=== PATIENT | male | born 1980 | race Caucasian/White ===

== ENCOUNTER → 2018-05-15 | Outpatient (CLI) | payer BC ==
--- NOTE | 2018-05-16 05:26 | PAP/PSG TECHNICIAN REPORT ---
[facility] Maternal Fetal Physician Polysomnogram Report Study name: None Report date: 05/16/2018 Study date: 05/15/2018 Referring Physician: ANDREA Ramos Name: KAROL CARIAS Interpreting Physician: Holger Howard D.O. Date of : 1980 Maternal Fetal Physician: CORRIE Thacker. Sex: Male Age: 37 StudyType: PSG PAP Weight: 235 lbs Height: 37 years, Height 6' 0" Neck Circum:16.5inches BMI: 31.87 Medications: Epipen 0.3mg, Escitalopram 10mg, Tamsulosin 0.4mg Patient History Study started on room air with 7cwp cpap in room #8. He felt as though he was suffocating on a lower setting.37 yr old male here tonight for a new titration study. He had a HST that had a cumulative NANCY of 47.2. Neck circ=16.5inches. ESS=20/24. Parameters Monitored NPSG: E1-M2, E2-M1, Fp1-M2, Fp2-M1, F3-M2, F4-M2, F4-M1, C3-M2, C4-M2, C4-M1, O1-M2, O2-M2, O2-M1, T3-M2, T4-M1, P3-M2, P4-M1, CHIN1, CHIN2, HR, EKG, Legs, PFLOW, SNOR, FLOW, CFLOW, Tidal Volume, THOR, ABDO, SpO2, PLTH, CPRESS, ETCO2 Wave, ETCO2, pH Sleep Architecture Sleep Stages Time at Lights Off 10:01:27 PM STAGES Time (min.) TST (%) Time at Lights On 5:14:27 AM Wake 58.0 -- Total Recording Time (TRT) 433.00 min. N1 26.5 7 Total Sleep Period (TSP) 408.5 min. N2 164.5 44 Total Sleep Time (TST) 375.0min. N3 82.0 22 Awake Time 58.0 min. REM 102.0 27 Wake after Sleep Onset 33.5 min. Sleep Efficiency (SE) 87 % Sleep Onset Latency (YULI) 24.5 min. Number of Stage 1 Shifts None Awakenings 30 Stage Changes 126 Number of REM periods 3 REM 102.0 27 REM Latency 282.5 min. NREM 273.0 73 Body Position Analysis Supine Right Left Side Prone Vertical Total Sleep Time (min.) 127.4 110.0 170.5 280.50 0.0 0.0 Total Sleep Time (%) 25% 29% 45% 75 0% N/A% Total Sleep Time REM (min.) 4.0 0.0 98.0 None 0.0 0.0 Total Sleep Time NREM (min.) 90.5 110.0 72.5 None 0.0 0.0 Intermittent Wake (min.) 32.9 17.1 8.0 None 0.0 0.0 Total Sleep Period (%) 26% None None None None None Arousals Myoclonus (PLM) * Events Count Index Events Count Index Spontaneous 31 5 Events Awake (PLMW) 68 70.3 Respiratory 8 1.4 Events Asleep w/ Arousal (PLMA) 19 3.0 PLM 18 3 Events Asleep w/o Arousal (PLMS) 128 20.5 Snoring 12 2 Total Asleep 147 23.5 Total 69 11 Total 215 30 Respiratory Analysis * CA OA MA CH H RERA Total Count 0 4 0 0 6 0 10 Index 0.0 0.6 0.0 0 1.0 0 1.6 Mean Duration 0.0 20.6 0.0 0.00 27.9 0.0 25.0 Longest Duration 0.0 23.5 0.0 0.00 0.0 0.0 37.8 Respiratory Event Summary Total Supine ~Supine Right Left Prone REM NREM Apneas Count 4 1 3 3 0 N/A 0 4 Index 0.6 1 1 1.6 0.0 N/A 0 1 Hypopneas (4% Desat) Count 6 1 5 5 0 N/A 0 6 Index 1.0 0.6 1 2.7 0.0 N/A 0.0 1.3 Apneas & All Hypopneas Count 10 2 8 8 0 N/A 0 10 Index 1.6 1 2 4 0 N/A 0.0 2.2 Respiratory Events ([employer]ician+All Hyp+RERA) Count 10 2 8 8 0 N/A 0 10 Index 1.6 1 2 4.4 0.0 N/A 0.0 2.2 Respiratory Related Arousal Count 8 2 7 7 0 N/A 0 9 Index 1.4 1 1 4 0 N/A 0 2 Snoring Analysis Supine Right Left Prone REM NREM Total Snore duration 8.9 min Snores count 93 185 44 N/A 26 296 322 Snore mean duration 1.7 Sec Snores index 59 101 15 N/A 15.3 65.1 51.5 TST with snoring (%) 2.4% Desaturation Event Summary: Minimum %SpO2 Event Count Mean/Min/Max Duration(sec.) Desaturation Index % Time In Bed > 90 16 27.4 / 6.0 / 60.0 2.3 98.8 86 - 90 0 N/A 0.0 1.2 81 - 85 0 N/A 0.0 0.0 76 - 80 0 N/A 0.0 0.0 71 - 75 0 N/A 0.0 0.0 66 - 70 0 N/A 0.0 0.0 61 - 65 0 N/A 0.0 0.0 56 - 60 0 N/A 0.0 0.0 51 - 55 0 N/A 0.0 0.0 < 50 0 N/A 0.0 0.0 Total REM NREM Awake <50% 0.0 min. 0.0 min. 0.0 min. 0.0 min. 51 - 60% 0.0 min. 0.0 min. 0.0 min. 0.0 min. 61 - 70% 0.0 min. 0.0 min. 0.0 min. 0.0 min. 71 - 80% 0.0 min. 0.0 min. 0.0 min. 0.0 min. 81 - 90% 5.2 min. 0.0 min. 4.4 min. 0.9 min. 91 - 100% 422.6 min. 101.9 min. 265.3 min. 55.4 min. Average 94 95 93 94 Minimum SpO2 87 92 87 89 Desaturation Event Index 2.2 0.0 2.0 7.2 # Desat. Events below 89% 3 N/A 3 N/A Time(%) with Saturation below 89% 0.1 0.0 0.1 0.0 Time(min.) with Saturation below 89% 0.3 0.0 0.3 0.0 Heart Rate Analysis Min (bpm) Max (bpm) Average (bpm) Awake 48 300 67 NREM 45 208 61 REM 45 81 55 Overall 45 208 60 Supplemental O2 Values Minimum O2 level: None Value Start Time End Time Maternal Fetal Physician Comments Mr. Carias slept in the right, left and supine positions. No cardiac arrhythmia noted. PLM's were noted. No bruxism noted. CPAP was initiated at +7 CMH2O (he could not tolerate a lower setting) and up-titrated to an optimal level of +8 CMH2O, which nearly eliminated all respiratory events and snoring. A medium Quattro Air full face mask by [employer] was used during titration. He did not use the restroom during the night. He stated that he did not sleep as well as when at home. The final report will be interpreted and signed by a sleep physician. The completed physician report will then be placed in the patient medical record Therapy Event: Therapy (cm H20) 7 8 Total Time at Pressure (min.) 56.6 376.4 TST at Pressure (min.) 30.1 344.9 # Periods 1 1 Sleep Onset (min.) 24.5 0.0 REM Onset (min.) N/A 250.4 Sleep Efficiency % 53 91 Wakefulness (%) 46.8 8.4 Wakefulness (min.) 26.5 31.5 NREM 1 (%) 7.9 5.8 NREM 1 (min.) 4.5 22.0 NREM 2 (%) 35.3 38.4 NREM 2 (min.) 20.0 144.5 NREM 3 (%) 9.9 20.3 NREM 3 (min.) 5.6 76.4 REM (%) 0.0 27.1 REM (min.) 0.0 102.0 # Arousals 11 58 Arousal Index 21.9 10.1 # Snore 95 227 Snore Index 189.3 39.5 AHI 6.0 1.2 AHI Supine N/A 1.3 AHI Non-Supine 6.0 1.2 NREM AHI 6.0 1.7 REM AHI N/A 0.0 RDI 6.0 1.2 # Obstructive 2 2 # Central Ap 0 0 # Mixed 0 0 # Hypopneas 1 5 RERAS 0 0 Total Respiratory Events 3 7 Time Below SpO2 89.00% (min.) 0.2 0.1 Mean NREM SpO2 (%) 92 93 Mean REM SpO2 (%) N/A 95 Mean Sleep SpO2 (%) 92 94 Min NREM SpO2 (%) 87 88 Min REM SpO2 (%) N/A 92 Position Supine (min.) 0.0 94.5 Position Non-supine (min.) 30.1 250.4 LM Index Sleep 31.9 22.8 LM Index NREM 31.9 16.6 LM Index REM N/A 37.6 Mean Heart Rate (bpm) 71 59 Min Heart Rate (bpm) 64 45
--- NOTE | 2018-05-18 15:11 | POLYSOMNOGRAPH REPORT ---
CLINICAL DATA: The patient is a 37-year-old male with a BMI of 31.87. He has a history of snoring, observed apneas, and very restless sleep. He had a 3-night home study done in April 2018. The overall NANCY for 3 nights was 47.2 events per hour indicating severe sleep apnea. He is referred to the sleep disorder center for a CPAP titration study. SLEEP ARCHITECTURE: The total sleep period was 408.5 minutes. The total sleep time was 375 minutes. Sleep efficiency was mildly reduced to 87%. The sleep latency was mildly prolonged at 24.5 minutes. Wake after sleep onset was 33.5 minutes. REM latency was prolonged to 282.5 minutes. There was only 1 REM period during the night. Sleep consisted of stage N1 7%, stage N2 44%, stage N3 22%, stage REM 27%. AROUSAL DATA: The patient had a total of 69 arousals including 31 spontaneous, 8 respiratory, 18 PLM, and 12 snoring arousals. The arousal index was 11. PLM DATA: The patient had 147 periodic limb movements of sleep for a PLM index of 23.5. There were 19 arousals, associated with limb movements for a PLM arousal index of 3.0. EKG: The cardiac rates had a minimum of 45 beats per minute. The average heart rate was 60 beats per minute. RESPIRATORY DATA: The patient's respiratory events were treated with nasal CPAP. He had a total of 10 respiratory events including 4 obstructive apneas and 6 hypopneas. The longest apnea was 23.5 seconds. The mean duration of the hypopneas was 27.9 seconds. The apnea hypopnea index was only 1.6 events per hour. OXIMETRY DATA: The average saturation for the night was 94%. The minimum saturation was 87%. There was only 0.3 minutes with saturations less than 89%. PRODUCTION ANALYST COMMENTS: Mr. Jaramillo slept in the right, left, and supine positions. No cardiac arrhythmia noted. PLMs were noted. No bruxism noted. CPAP was initiated at 7 cm as he could not tolerate a lower setting. He was up titrated to an optimum level of 8 cm. This nearly eliminated all respiratory events and snoring. A [employer] Quattro Air full face mask size medium was utilized. He did not use the restroom during the night. He stated he did not sleep as well as when at home. IMPRESSION: Obstructive sleep apnea - resolved with nasal CPAP at 8 cm. COMMENTS: The patient overall did well with CPAP. It took a longer than normal time to fall asleep. His sleep became more consolidated later on in the night. Oxygenation was normal. He had a modest number of limb movements. This would not be unexpected with resolution of sleep disordered breathing. His clinical history reported a severely abnormal home sleep study associated with symptoms and thus treatment is clearly indicated. RECOMMENDATIONS: 1. It is advised that the patient be treated with nasal CPAP at 8 cm. 2. It is suggested that if possible, the patient avoid sleeping in the supine position. 3. Weight loss is advised in light of the elevation of body mass index at 31.87. 4. It is suggested that the patient avoid alcohol intake for approximately 4 hours prior to sleep. 5. The patient should be seen in followup between day 31 and day 90 after receiving his CPAP for insurance requirements.
== END | disposition home or self-care (01) ==
LOC: C.NEUR 21:00
PROVIDERS: ATTEND Nurse Practitioner Family
DX: G47.33 Obstructive sleep apnea (adult) (pediatric) (principal)